=== PATIENT | male | born 1975 | race Caucasian/White ===

== ENCOUNTER 2019-08-22 12:09 | Emergency (ER) | payer OTHER ==
[~2019-08-22] VITALS: Ht 177.8 cm; Wt 72.6 kg
[2019-08-22 12:12] VITALS: BP 120/74
--- NOTE | 2019-08-22 12:23 | NUR ---
C/O INTERMITTENT, THROBBING L EAR PAIN X 1 MONTH. DENIES DIZZINESS. DENIES TINNITUS. STATES FEELS LIKE "BUTTERFLY FLUTTERING IN THE EAR". WORSE WHEN COLD AIR ENTERS THE EAR. STATES MILD PAIN AT THIS TIME. MED HX:DENIES
--- NOTE | 2019-08-22 12:25 | NUR ---
DR. MATHEW EVALUATING PT AT BEDSIDE
--- NOTE | 2019-08-22 12:49 | NUR ---
Patient discharged with v/s stable. Written and verbal after care instructions given and explained. Patient alert, oriented and verbalized understanding of instructions. Ambulatory with steady gait. All questions addressed prior to discharge. ID band removed. Patient advised to follow up with PMD. Rx of CIPROFLOXACIN OTIC given. Patient educated on indication of medication including possible reaction and side effects. Opportunity to ask questions provided and answered.
[2019-08-22 12:50] VITALS: BP 120/74
== END 2019-08-22 12:49 | disposition home or self-care (01) ==
LOC: MED 12:09
DX: H60.92 Unspecified otitis externa, left ear (principal)
CPT/HCPCS: 99283